=== PATIENT | female | born 1985 | race Caucasian/White ===

== ENCOUNTER 2016-03-29 14:51 | Emergency (ER) | payer SELFPAY ==
[2016-03-29 15:00] VITALS: O2SAT 99
--- NOTE | 2016-03-29 15:19 | ERPHSYRPT ---
- History of Present Illness Time Seen by Provider: 03/29/16 15:14 Source: patient Exam Limitations: no limitations Patient Subjective Stated Complaint: rt lower dental abscess Triage Nursing Assessment: rt lower dental abscess for 2 days. rt lower jaw very swollen. multiple dental caries. fever at home Physician History: Patient is a 30-year-old female who saw her dentist today because she had right lower jaw swelling and right lower back tooth pain for 2 days. Her dentist sent her to the emergency room for IV antibiotics for possible abscess. She had the same condition several months ago and was seen in the emergency room and given antibiotics both by injection and by oral prescription. The pain and swelling at that time resolved or to come back 2 days ago. Timing/Duration: gradual onset, days (2) Severity: moderate ENT Location: dental Prearrival Treatment: no prearrival treatment Modifying Factors: Improves With: nothing Associated Symptoms: tooth pain Allergies/Adverse Reactions: Penicillins Adverse Reaction (Verified 03/29/16 15:00) Vomiting Home Medications: No Home Meds 1 [facility] 01/17/16 [History] Hx Tetanus, Diphtheria Vaccination/Date Given: Yes Hx Influenza Vaccination/Date Given: No Hx Pneumococcal Vaccination/Date Given: No Immunizations Up to Date: Yes - Review of Systems Constitutional: Fever (yesterday) Eyes: No Symptoms Ears, Nose, & Throat: Mouth Pain, Mouth Swelling Respiratory: No Cough, No Dyspnea Cardiac: No Chest Pain, No Edema, No Syncope Abdominal/Gastrointestinal: No Abdominal Pain, No Nausea, No Vomiting, No Diarrhea Genitourinary Symptoms: No Dysuria Musculoskeletal: No Back Pain, No Neck Pain Skin: No Rash Neurological: No Dizziness, No Focal Weakness, No Sensory Changes Psychological: No Symptoms Endocrine: No Symptoms Hematologic/Lymphatic: No Symptoms Immunological/Allergic: No Symptoms All Other Systems: Reviewed and Negative - Past Medical History Pertinent Past Medical History: Yes Other Medical History: dental abscess - Past Surgical History Past Surgical History: Yes Female Surgical History: Section Other Surgical History: c section x4 - Social History Smoking Status: Current every day smoker How long have you smoked: 13 yrs Exposure to second hand smoke: Yes Drug Use: none Patient Lives Alone: No - Female History Hx Last Menstrual Period: current - Nursing Vital Signs Nursing Vital Signs: Initial Vital Signs Temperature 99.2 F Temperature Source Oral Pulse Rate 78 Respiratory Rate 18 Blood Pressure 120/65 Pain Intensity 7 - Physical Exam General Appearance: mild distress Eye Exam: bilateral eye: normal inspection Ear Exam: bilateral ear: auricle normal Nasal Exam: normal inspection Throat Exam: dental tenderness (2 posterior right lower molars, caries), mandibular swelling Neck Exam: supple Cardiovascular/Respiratory Exam: normal breath sounds, regular rate/rhythm Abdominal Exam: non-tender, soft Neurologic Exam: alert, oriented x 3, sensation nml, No motor deficits Skin Exam: normal color, warm, dry SpO2 Interpretation: normal SpO2: 99 Oxygen Delivery: Room Air - CT Exams Other CT Interpretation: Tele-radiologist Report, Other (CT of right neck and jaw shows cellulitis. No abscess.) Ordered Tests: Active Orders 24 hr Category Date Time Status IV Insertion STAT Care 03/29/16 15:23 Active NECK WITH CONTRAST [CT] Stat Exams 03/29/16 15:24 Completed BMP Stat Lab 03/29/16 16:00 Completed CBC W DIFF Stat Lab 03/29/16 16:00 Completed Lactic Acid Urgent Lab 03/29/16 15:40 Completed Medication Summary Discontinued Medications Generic Name Dose Route Start Last Admin Trade Name Freq PRN Reason Stop Dose Admin Sodium Chloride 1,000 mls @ 999 mls/hr 03/29/16 15:23 03/29/16 16:18 Sodium Chloride 0.9% 1000 Ml IV 03/29/16 16:23 999 mls/hr .Q1H1M STA Administration Sodium Chloride Confirm 03/29/16 15:45 Sodium Chloride 0.9% 1000 Ml Administered 03/29/16 15:46 Dose 1,000 mls @ ud .ROUTE .STK-MED ONE Ceftriaxone Sodium/Dextrose 50 mls @ 100 mls/hr 03/29/16 16:54 03/29/16 17:01 Rocephin 1 Gm-D5w 50 Ml Bag IV 03/29/16 17:23 100 mls/hr STAT ONE Administration Ceftriaxone Sodium/Dextrose Confirm 03/29/16 17:01 Rocephin 1 Gm-D5w 50 Ml Bag Administered 03/29/16 17:02 Dose 50 mls @ ud IV .STK-MED ONE Ketorolac Tromethamine 30 mg 03/29/16 15:25 03/29/16 16:18 Toradol 30 Mg Injection IV 03/29/16 15:26 30 mg STAT ONE Administration Ketorolac Tromethamine Confirm 03/29/16 15:45 Toradol 30 Mg Injection Administered 03/29/16 15:46 Dose 30 mg .ROUTE .STK-MED ONE Lab/Rad Data: Laboratory Result Diagrams 03/29/16 16:00 03/29/16 16:00 Laboratory Results 03/29/16 03/29/16 03/29/16 Range/Units 16:00 16:00 15:40 WBC 11.4 H (4.0-10.5) K/mm3 RBC 4.07 L (4.1-5.4) M/mm3 Hgb 11.2 L (12.0-16.0) gm/dl Hct 35.2 (35-47) % MCV 86.5 (78-100) fl MCH 27.5 (26-32) pg MCHC 31.8 L (32-36) g/dl RDW 13.9 (11.5-14.0) % Plt Count 250 (150-450) K/mm3 MPV 11.2 H (6-9.5) fl Gran % 85.8 H (36.0-66.0) % Lymphocytes % 7.8 L (24.0-44.0) % Monocytes % 5.8 (0.0-12.0) % Eosinophils % 0.5 (0.00-5.0) % Basophils % 0.1 (0.0-0.4) % Basophils # 0.01 (0-0.4) Sodium 139 (136-145) mEq/L Potassium 3.9 (3.5-5.1) mEq/L Chloride 105 (98-107) mEq/L Carbon Dioxide 23.9 (21-32) mEq/L Anion Gap 14.3 (5-15) MEQ/L BUN 8 L (9-20) mg/dL Creatinine 0.69 (0.55-1.30) mg/dl Estimated GFR > 60 ML/MIN Glucose 93 (70-110) MG/DL Lactic Acid 0.8 (0.4-2.0) Calcium 8.4 L (8.5-10.1) mg/dL - Progress Progress: improved Counseled pt/family regarding: lab results, diagnosis, need for follow-up - Departure Time of Disposition: 16:57 Departure Disposition: Home Clinical Impression: Cellulitis Condition: Stable Critical Care Time: No Referrals: DOCTOR,NO FAMILY [Primary Care Provider] - Instructions: Tooth Decay Additional Instructions: Follow up with your dentist next week. Tylenol and Ibuprofen as needed. Clindamycin as directed. Prescriptions: Clindamycin HCl 1 cap PO QID #40 capsule
[2016-03-29] MEDS ORDERED: Sodium Chloride 0.9% 1000 ML 1,000 ML IV STA (15:23)
[2016-03-29] MEDS ORDERED: TORAdol 30 mg Injection IV ONE (15:25)
[2016-03-29] MEDS ORDERED: Sodium Chloride 0.9% 1000 ML 1,000 ML ONE (15:45)
[2016-03-29] MEDS ORDERED: TORAdol 30 mg Injection ONE (15:45)
[2016-03-29 16:12] LABS: BASOPHIL % 0.1 % (0.0-0.4); Eosinophil % 0.5 % (0.00-5.0); Granulocytes % 85.8 % (36.0-66.0); Lymphocytes % 7.8 % (24.0-44.0); Mean Cell Volume 86.5 fl (78-100); Mean Corpuscular Hemoglobin 27.5 pg (26-32); Mean Platelet Volume 11.2 fl (6-9.5); Monocytes % 5.8 % (0.0-12.0); Platelet Count 250 K/mm3 (150-450); Red Blood Count 4.07 M/mm3 (4.1-5.4); Red Cell Distribution Width 13.9 % (11.5-14.0); White Blood Count 11.4 K/mm3 (4.0-10.5)
[2016-03-29 16:28] LABS: ANION GAP 14.3 MEQ/L (5-15); BLOOD UREA NITROGEN 8 mg/dL (9-20); CHLORIDE 105 mEq/L (98-107); Carbon Dioxide 23.9 mEq/L (21-32); Glucose 93 MG/DL (70-110); Potassium 3.9 mEq/L (3.5-5.1); SODIUM 139 mEq/L (136-145)
--- NOTE | 2016-03-29 16:37 | XRAY ---
Indication: Right tooth pain and right neck swelling for 2 days. Multiple contiguous axial images obtained through the neck using 60 cc of Isovue 370 contrast. Cutaneous marker placed over the region of interest. Comparison: None Cutaneous marker is in the right mandibular region where there is cutaneous/subcutaneous soft tissue swelling/induration favoring cellulitis. A few reactive centimeter/subcentimeter right cervical and right submandibular lymph nodes. No suspicious air or walled off fluid collection. Major arteries and veins are normal in course and caliber. Parotid and submandibular glands are bilaterally symmetric. Thyroid gland enhances homogeneously. Supra-and infraglottic airway widely patent. There are dental caries involving the posterior right lower/upper molar and posterior left lower molar teeth. No suspicious bony lesions. 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 Images of the base of the brain and lung apices unremarkable. Impression: 1. Cellulitis in the region of the right mandible with a few reactive lymph nodes. No walled off fluid collection/abscess. 2. Multiple bilateral molar dental caries. CTDI is 26.28
[2016-03-29] MEDS ORDERED: ROCEPHIN 1 Gm-D5w 50 ml Bag** 50 ML IV ONE ×2 (16:54→17:01)
[2016-03-29 17:11] VITALS: BP 120/65; PULSE 78
== END 2016-03-29 17:40 | disposition home or self-care (01) ==
LOC: ED 14:51
DX: L03.818 Cellulitis of other sites (principal); K04.7 Periapical abscess without sinus
CPT/HCPCS: 36000; 36415; 70491; 80048; 83605; 85025; 96360; 96365; 99283; J0696; J1885